=== PATIENT | female | born 1985 | race Caucasian/White ===

== ENCOUNTER 2017-03-06 08:19 | Emergency (ER) | payer BC ==
[~2017-03-06] VITALS: Ht 167.6 cm; Wt 73.3 kg
[~2017-03-06 08:19] MED LIST: DIVA125T2 PO; FERR325T18 PO; HYDR-3240 PO; HYDR-882 PO; TETR500C3; [UNRECOGNIZED DRUG - CODE] PO
[2017-03-06 08:28] VITALS: BP 144/91
[2017-03-06] MEDS ORDERED: CLINDAMYCIN PMX 900MG/50ML 50 ML IV ONE (09:30)
[2017-03-06] MEDS ORDERED: SODIUM CHLORIDE 0.9% 1,000ML IVBOLUS ONE (09:30)
[2017-03-06 09:58] LABS: BASOPHILS # (AUTO) 0.04 x10^3/uL (0-0.1); BASOPHILS % (AUTO) 0 % (0-1); EOSINOPHILS # (AUTO) 0.15 x10^3/uL (0-0.4); EOSINOPHILS % (AUTO) 1 % (1-7); LYMPHOCYTES # (AUTO) 1.86 x10^3/uL (1-3.4); LYMPHOCYTES % (AUTO) 17 % (22-44); MD NO; MEAN CORPUSCULAR HEMOGLOBIN 30.6 pg (27.0-34.8); MEAN CORPUSCULAR HGB CONC 33.3 g/dL (32.4-35.8); MEAN CORPUSCULAR VOLUME 91.7 fL (80-100); MEAN PLATELET VOLUME 8.5 fL (7.4-10.4); MONOCYTES # (AUTO) 0.75 x10^3/uL (0.2-0.8); MONOCYTES % (AUTO) 7 % (2-9); NEUTROPHILS # (AUTO) 7.98 x10^3/uL (1.8-6.8); NEUTROPHILS % (AUTO) 74 % (42-75); PLATELET COUNT 213 x10^3/uL (130-400); RED BLOOD COUNT 4.75 x10^6/uL (3.82-5.3); RED CELL DISTRIBUTION WIDTH 13.1 % (9.6-15.2)
[2017-03-06] MEDS ORDERED: CLINDAMYCIN PMX 900MG/50ML 50 ML ONE (10:04)
[2017-03-06 10:08] LABS: ALANINE AMINOTRANSFERASE 21 U/L (12-78); ALBUMIN 3.6 g/dL (3.4-5.0); ANION GAP 6 mmol/L (5-15); CALCIUM 8.6 mg/dL (8.5-10.1); CHLORIDE 107 mmol/L (98-107); CREATININE 0.62 mg/dL (0.55-1.02)
[2017-03-06 10:10] LABS: ALKALINE PHOSPHATASE 76 U/L (45-117); BILIRUBIN,TOTAL 0.5 mg/dL (0.2-1.0); TOTAL PROTEIN 7.3 g/dL (6.4-8.2)
[2017-03-06] MEDS ORDERED: MORPHINE SULFATE 4 MG/ML, 1ML ONE (10:50)
[2017-03-06] MEDS ORDERED: morphine SULFATE 10 MG/ML, 1ML IVPush ONE (11:00)
== END 2017-03-06 12:15 | disposition home or self-care (01) ==
LOC: ED 10:01
DX: K02.9 Dental caries, unspecified (principal); L03.211 Cellulitis of face; F17.200 Nicotine dependence, unspecified, uncomplicated; Z90.49 Acquired absence of other specified parts of digestive tract
CPT/HCPCS: 36415; 70491; 80053; 83605; 85025; 87040; 96365; 96375; 99285; J2270; J7030

== ENCOUNTER 2017-11-08 16:23 | Emergency (ER) | payer BC, MEDICAID ==
[~2017-11-08] VITALS: Ht 167.6 cm; Wt 75.0 kg
[~2017-11-08 16:23] MED LIST changes: +HYDR-3653 PO; -HYDR-882 PO; +TETR-17; -TETR500C3
[2017-11-08] MEDS ORDERED: DIAZEPAM 5 MG TABLET ONE (16:57)
[2017-11-08] MEDS ORDERED: DIAZEPAM 5 MG TABLET PO ONE (17:00)
[2017-11-08 17:16] VITALS: BP 134/68
== END 2017-11-08 17:18 | disposition home or self-care (01) ==
LOC: ED 17:00
DX: F11.10 Opioid abuse, uncomplicated (principal); F41.9 Anxiety disorder, unspecified; L03.113 Cellulitis of right upper limb; L03.114 Cellulitis of left upper limb; G43.909 Migraine, unspecified, not intractable, without status migrainosus; Z90.49 Acquired absence of other specified parts of digestive tract; Z88.1 Allergy status to other antibiotic agents
CPT/HCPCS: 99283

== ENCOUNTER 2017-12-24 20:33 | Inpatient (IN) | payer MEDICAID, OTHER ==
[~2017-12-24] VITALS: Ht 172.7 cm; Wt 72.7 kg
[2017-12-24 20:57] LABS: BASOPHILS # (AUTO) 0.08 x10^3/uL (0-0.1); BASOPHILS % (AUTO) 1 % (0-1); EOSINOPHILS # (AUTO) 0.25 x10^3/uL (0-0.4); EOSINOPHILS % (AUTO) 2 % (1-7); LYMPHOCYTES # (AUTO) 3.22 x10^3/uL (1-3.4); LYMPHOCYTES % (AUTO) 23 % (22-44); MD NO; MEAN CORPUSCULAR HEMOGLOBIN 27.3 pg (27.0-34.8); MEAN CORPUSCULAR HGB CONC 32.7 g/dL (32.4-35.8); MEAN CORPUSCULAR VOLUME 83.5 fL (80-100); MONOCYTES # (AUTO) 0.83 x10^3/uL (0.2-0.8); MONOCYTES % (AUTO) 6 % (2-9); NEUTROPHILS # (AUTO) 9.49 x10^3/uL (1.8-6.8); NEUTROPHILS % (AUTO) 68 % (42-75); PLATELET COUNT 241 x10^3/uL (130-400); RED BLOOD COUNT 4.61 x10^6/uL (3.82-5.3); RED CELL DISTRIBUTION WIDTH 14.7 % (9.6-15.2)
[2017-12-24] MEDS ORDERED: NALOXONE 1 MG/ML, 2ML IVPush ONE ×3 (21:00→22:30)
[2017-12-24] MEDS ORDERED: SODIUM CHLORIDE 0.9% 1,000ML IVBOLUS ONE (21:00)
[2017-12-24 21:03] LABS: ALANINE AMINOTRANSFERASE 21 U/L (12-78); ALBUMIN 3.2 g/dL (3.4-5.0); ANION GAP 10 mmol/L (5-15); CALCIUM 8.3 mg/dL (8.5-10.1); CHLORIDE 107 mmol/L (98-107); CREATININE 0.84 mg/dL (0.55-1.02); SALICYLATE LEVEL 2.7 mg/dL (2.8-20.0)
[2017-12-24 21:05] LABS: ALKALINE PHOSPHATASE 107 U/L (45-117); BILIRUBIN,TOTAL 0.3 mg/dL (0.2-1.0); TOTAL PROTEIN 7.1 g/dL (6.4-8.2)
[2017-12-24 21:10] LABS: ACETAMINOPHEN < 2 mcg/mL (10-30)
[2017-12-24] MEDS ORDERED: NALOXONE 1 MG/ML, 2ML ONE (21:30)
[2017-12-24] MEDS ORDERED: CLINDAMYCIN PMX 600MG/50ML 50 ML ONE (21:51)
[2017-12-24] MEDS ORDERED: CLINDAMYCIN PMX 600MG/50ML 50 ML IV ONE (22:00)
[2017-12-24] MEDS ORDERED: SODIUM CHLORIDE 0.9% 1,000 ML IV ONE (22:18)
[2017-12-24] MEDS ORDERED: ONDANSETRON 2MG/ML, 2ML IVPush PRN ×2 (22:30→23:00)
[2017-12-24] MEDS: NALOXONE 10 MG in SODIUM CHLORIDE 0.9% 1,000 ML IV SCH (22:37)
[2017-12-24] MEDS ORDERED: PHARMACOKINETIC CONSULTATION MC ONE (23:00)
[2017-12-24] MEDS ORDERED: PHARMACOKINETIC MONITORING MC PRN (23:00)
[2017-12-24] MEDS ORDERED: DOCUSATE 100 MG CAPSULE PO PRN (23:00)
[2017-12-24] MEDS ORDERED: BISACODYL 10 MG SUPP PR PRN (23:00)
[2017-12-24] MEDS ORDERED: LABETALOL 5MG/ML, 20ML IVPush PRN (23:00)
[2017-12-24] MEDS ORDERED: ACETAMINOPHEN 325 MG TABLET PO PRN (23:00)
[2017-12-24] MEDS ORDERED: morphine SULFATE 10 MG/ML, 1ML IVPush PRN (23:00)
[2017-12-24] MEDS ORDERED: OXYcodone IR 5MG TABLET PO PRN (23:00)
[2017-12-24] MEDS ORDERED: hydrALAzine 20 MG/ML, 1ML IVPush PRN (23:00)
[2017-12-24] MEDS ORDERED: POLYETHYLENE GLYCOL 17 GM PACKET PO PRN (23:00)
[2017-12-24] MEDS ORDERED: ONDANSETRON ODT 4 MG PO PRN (23:00)
[2017-12-24] MEDS ORDERED: PROMETHAZINE 25 MG/ML, 1ML IM PRN (23:00)
[2017-12-24] MEDS ORDERED: VANCOMYCIN PMX 1GM/200ML 200 ML IV ONE (23:00)
[2017-12-24] MEDS ORDERED: VANCOMYCIN PER PHARMACY MC PRN (23:00)
[2017-12-24 23:12] LABS: FREE T4 (FREE THYROXINE) 1.23 ng/dL (0.76-1.46); THYROID STIMULATING HORMONE 1.02 mIU/L (0.358-3.740)
[2017-12-24 23:30] LABS: HCT (SEDRATE) 30.6 % (34.6-47.8)
[2017-12-25] VITALS: BP 132/89
[2017-12-25] MEDS: SODIUM CHLORIDE 0.9% 1,000 ML IV SCH ×2 (00:08→05:16)
[2017-12-25] MEDS: VANCOMYCIN 1,400 MG in SODIUM CHLORIDE 0.9% 250 ML IV SCH ×2 (00:09→12:00)
[2017-12-25] MEDS: AMPICILLIN/SULBACTAM 3 GM in SODIUM CHLORIDE 0.9% 100 ML IV SCH ×2 (01:56→09:18)
[2017-12-25] MEDS: HEPARIN 5,000 UNITS/ML, 1ML SQ SCH ×2 (01:56→09:18)
[2017-12-25 04:31] LABS: HCG UR SG 1.016 (1.003-1.030); MICROSCOPIC NOT IND
[2017-12-25 04:41] LABS: AMPHETAMINE SCREEN, URINE Positive (Negative); BARBITURATE SCREEN, URINE Negative (Negative); BENZODIAZEPINE SCREEN, URINE Positive (Negative); CANNABINOID SCREEN, URINE Negative (Negative); COCAINE SCREEN, URINE Negative (Negative); METHADONE SCREEN, URINE Negative (Negative); OPIATE SCREEN, URINE Positive (Negative)
[2017-12-25 04:41] LABS: BASOPHILS # (AUTO) 0.05 x10^3/uL (0-0.1); BASOPHILS % (AUTO) 0 % (0-1); EOSINOPHILS # (AUTO) 0.11 x10^3/uL (0-0.4); EOSINOPHILS % (AUTO) 1 % (1-7); LYMPHOCYTES # (AUTO) 2.04 x10^3/uL (1-3.4); LYMPHOCYTES % (AUTO) 16 % (22-44); MD NO; MEAN CORPUSCULAR HEMOGLOBIN 27.8 pg (27.0-34.8); MEAN CORPUSCULAR HGB CONC 33.2 g/dL (32.4-35.8); MEAN CORPUSCULAR VOLUME 83.7 fL (80-100); MEAN PLATELET VOLUME 8.7 fL (7.4-10.4); MONOCYTES # (AUTO) 0.63 x10^3/uL (0.2-0.8); MONOCYTES % (AUTO) 5 % (2-9); NEUTROPHILS # (AUTO) 9.96 x10^3/uL (1.8-6.8); NEUTROPHILS % (AUTO) 78 % (42-75); PLATELET COUNT 203 x10^3/uL (130-400); RED BLOOD COUNT 4.07 x10^6/uL (3.82-5.3); RED CELL DISTRIBUTION WIDTH 14.4 % (9.6-15.2)
[2017-12-25 04:44] LABS: CULTURE INDICATED? NO
[2017-12-25 04:53] LABS: ALANINE AMINOTRANSFERASE 17 U/L (12-78); ALBUMIN 2.5 g/dL (3.4-5.0); ANION GAP 5 mmol/L (5-15); CALCIUM 7.5 mg/dL (8.5-10.1); CHLORIDE 115 mmol/L (98-107); CREATININE 0.42 mg/dL (0.55-1.02)
[2017-12-25 04:56] LABS: ALKALINE PHOSPHATASE 77 U/L (45-117); BILIRUBIN,TOTAL 0.5 mg/dL (0.2-1.0); CHOL/HDL RATIO 3.5; CHOLESTEROL, TOTAL 90 mg/dL (140-239); HDL CHOL % 29 % (28-40); HDL CHOLESTEROL (DIRECT) 26 mg/dL (40-60); LDL CHOLESTEROL,CALCULATED 43 mg/dL (54-169); LDL/HDL RATIO 1.7 (0.5-3.0); TOTAL PROTEIN 5.5 g/dL (6.4-8.2); TRIGLYCERIDES 107 mg/dL (50-200); VLDL CHOLESTEROL 21 mg/dL (0-25)
[2017-12-25] MEDS: NALOXONE 10 MG in SODIUM CHLORIDE 0.9% 1,000 ML IV SCH (08:26)
[2017-12-25] MEDS ORDERED: PIPERACILLIN/TAZO/PMX 3.375GM 50 ML IV SCH (10:30)
[2017-12-25] MEDS ORDERED: VANCOMYCIN 1,400 MG in SODIUM CHLORIDE 0.9% 250 ML IV SCH (12:00)
[2017-12-25] MEDS ORDERED: SODIUM CHLORIDE 0.9% 1,000 ML IV SCH (22:36)
== END 2017-12-25 14:40 | disposition left against medical advice (07) | DRG 871 ==
LOC: MERGE 20:33 → EDBD 20:33 → ED 21:38 → EDIP 22:18 → CCU 23:16
PROVIDERS: ADMIT Internal Medicine; ATTEND Internal Medicine
DX: A41.9 Sepsis, unspecified organism (principal); G92 Toxic encephalopathy; J96.01 Acute respiratory failure with hypoxia; K50.90 Crohn's disease, unspecified, without complications; L02.413 Cutaneous abscess of right upper limb; L03.113 Cellulitis of right upper limb; L03.116 Cellulitis of left lower limb; L02.414 Cutaneous abscess of left upper limb; L03.114 Cellulitis of left upper limb; L02.415 Cutaneous abscess of right lower limb; G43.909 Migraine, unspecified, not intractable, without status migrainosus; F11.10 Opioid abuse, uncomplicated; T40.1X1A Poisoning by heroin, accidental (unintentional), initial encounter; Z90.710 Acquired absence of both cervix and uterus; Y92.89 Other specified places as the place of occurrence of the external cause; Z88.2 Allergy status to sulfonamides; Z90.49 Acquired absence of other specified parts of digestive tract
CPT/HCPCS: 36415; 71045; 80053; 80061; 80074; 80307; 80329; 81003; 81025; 82962; 83735; 84439; 84443; 85025; 85651; 86140; 87040; 87081; 87806; 93005; 96361; 96365; 96375; 99291; G0378; J0295; J1644; J2543; J3370; G0475; G0480; J2310; J7030; J7050

== ENCOUNTER 2018-05-15 23:28 | Emergency (ER) | payer MEDICAID ==
[~2018-05-15] VITALS: Ht 167.6 cm; Wt 79.2 kg
[2018-05-16] MEDS ORDERED: KETAMINE 100 MG/ML, 5ML IM ONE
[2018-05-16] MEDS ORDERED: LIDOCAINE 1%-EPI 1:100K, 20ML SQ ONE
[2018-05-16] MEDS ORDERED: CLINDAMYCIN 150 MG/ML, 6ML IM ONE
[2018-05-16] MEDS ORDERED: LIDOCAINE 1%-EPI 1:100K, 20ML ONE (00:01)
[2018-05-16] MEDS ORDERED: DIPH,PERTUSS(ACELL),TET VAC/PF 0.5 ML IM-VACC ONE ×2 (00:04)
[2018-05-16] MEDS ORDERED: CLINDAMYCIN 150 MG/ML, 6ML ONE (00:04)
--- NOTE | 2018-05-16 00:09 | NUR ---
REVIEWED PROCEDURAL CONSENT FORM WITH PT AND ANSWERED ALL QUESTIONS. PT SIGNED CONSENT FORM. CONSENT FORM PLACED ON CHART. PT GETTING IN GOWN
[2018-05-16] MEDS ORDERED: PROPOFOL 10 MG/ML, 20ML IVPush ONE (01:00)
[2018-05-16] MEDS ORDERED: PROPOFOL 10 MG/ML, 20ML ONE (01:09)
[2018-05-16 02:23] VITALS: BP 141/80
== END 2018-05-16 02:24 | disposition home or self-care (01) ==
LOC: ED 05-16 02:03
DX: L02.413 Cutaneous abscess of right upper limb (principal)
CPT/HCPCS: 10060; 87070; 87205; 96372; 99285; S0077

== ENCOUNTER 2018-05-18 23:59 | Emergency (ER) | payer MEDICAID ==
[~2018-05-18] VITALS: Ht 167.6 cm; Wt 77.0 kg
[2018-05-19 00:04] VITALS: BP 147/119
[2018-05-19] MEDS ORDERED: LIDOCAINE 1%-EPI 1:100K, 20ML ONE (00:29)
[2018-05-19] MEDS ORDERED: LIDOCAINE 1%-EPI 1:100K, 20ML SQ ONE (00:30)
--- NOTE | 2018-05-19 00:47 | NUR ---
PA AT BEDSIDE FOR I&D.
== END 2018-05-19 01:20 | disposition home or self-care (01) ==
LOC: ED 05-19 00:13
DX: L02.413 Cutaneous abscess of right upper limb (principal); F11.10 Opioid abuse, uncomplicated; Z72.9 Problem related to lifestyle, unspecified; F17.210 Nicotine dependence, cigarettes, uncomplicated; G43.909 Migraine, unspecified, not intractable, without status migrainosus
CPT/HCPCS: 10060; 99283

== ENCOUNTER 2018-07-13 07:43 | Emergency (ER) | payer MEDICAID ==
[~2018-07-13] VITALS: Ht 167.6 cm; Wt 70.0 kg
--- NOTE | 2018-07-13 08:29 | NUR ---
33 y/o FEMALE PRESENTS TO ED WITH C/O LEFT HAND EDEMA. PER PT "I DON'T KNOW WHAT HAPPENED. IT'S BEEN THIS WAY FOR A FEW DAYS. I DID HIT IT ON A TABLE A FEW DAYS AGO TOO." OBVIOUS EDEMA. FRIEND BEDSIDE. NO ACUTE DISTRESS NOTED.
[2018-07-13] MEDS ORDERED: CEPHALEXIN 500 MG CAPSULE PO ONE (09:30)
[2018-07-13] MEDS ORDERED: LIDOCAINE-MPF 1%, 5ML INFIL ONE (09:30)
[2018-07-13] MEDS ORDERED: CLINDAMYCIN 300 MG CAPSULE PO ONE (09:30)
[2018-07-13] MEDS ORDERED: LIDOCAINE-MPF 1%, 5ML ONE ×2 (09:43→10:23)
[2018-07-13] MEDS ORDERED: CEPHALEXIN 500 MG CAPSULE ONE ×2 (09:43)
[2018-07-13] MEDS ORDERED: CLINDAMYCIN 300 MG CAPSULE ONE (09:44)
--- NOTE | 2018-07-13 10:25 | NUR ---
BEDSIDE REPORT TO DANIEL ROMERO
[2018-07-13 11:25] VITALS: BP 145/95
--- NOTE | 2018-07-13 11:27 | NUR ---
NO WOUND CULTURE NEEDD PER DR. DIEGO.
== END 2018-07-13 11:27 | disposition home or self-care (01) ==
LOC: ED 08:25
DX: L02.512 Cutaneous abscess of left hand (principal); L03.114 Cellulitis of left upper limb; Z90.710 Acquired absence of both cervix and uterus
CPT/HCPCS: 10060

== ENCOUNTER 2018-08-13 03:06 | Emergency (ER) | payer MEDICAID ==
[~2018-08-13] VITALS: Ht 167.6 cm; Wt 63.0 kg
[2018-08-13 03:12] VITALS: BP 149/112
--- NOTE | 2018-08-13 03:16 | NUR ---
bib remsa, pt has an abscess on the left wrist x 5 days ago. has been on abx for 3 days and abscess has gotten worse, despite abx. pt cannot remember what the abx are called.
== END 2018-08-13 05:14 | disposition home or self-care (01) ==
LOC: ED 03:42
DX: L02.414 Cutaneous abscess of left upper limb (principal); G43.909 Migraine, unspecified, not intractable, without status migrainosus; Z90.49 Acquired absence of other specified parts of digestive tract; Z90.710 Acquired absence of both cervix and uterus
CPT/HCPCS: 99283

== ENCOUNTER 2018-08-27 03:40 | Emergency (ER) | payer MEDICAID ==
[~2018-08-27] VITALS: Ht 167.6 cm; Wt 71.6 kg
--- NOTE | 2018-08-27 03:55 | NUR ---
LAB IN DRAWING BLOOD. URINE CUP GIVEN TO PT FOR SAMPLE COLLECTION
[2018-08-27 04:12] LABS: MEAN CORPUSCULAR HEMOGLOBIN 27.7 pg (27.0-34.8); MEAN CORPUSCULAR HGB CONC 32.2 g/dL (32.4-35.8); MEAN CORPUSCULAR VOLUME 86.2 fL (80-100); MEAN PLATELET VOLUME 9.1 fL (7.4-10.4); PLATELET COUNT 248 x10^3/uL (130-400); RED BLOOD COUNT 4.91 x10^6/uL (3.82-5.3); RED CELL DISTRIBUTION WIDTH 14.8 % (9.6-15.2)
[2018-08-27 04:18] LABS: MICROSCOPIC NOT IND
[2018-08-27 04:24] LABS: CULTURE INDICATED? NO
[2018-08-27 04:25] LABS: ALANINE AMINOTRANSFERASE 257 U/L (12-78); ALBUMIN 3.7 g/dL (3.4-5.0); ANION GAP 9 mmol/L (5-15); CHLORIDE 105 mmol/L (98-107); CREATININE 0.79 mg/dL (0.55-1.02)
[2018-08-27 04:30] LABS: ALKALINE PHOSPHATASE 159 U/L (45-117); BILIRUBIN,TOTAL 0.5 mg/dL (0.2-1.0); TOTAL PROTEIN 7.8 g/dL (6.4-8.2)
[2018-08-27 04:45] LABS: MD YES
[2018-08-27 04:47] LABS: BASOS#(MANUAL) 0.21 x10^3/uL (0-0.1); BASOS% (MANUAL) 2 % (0-1); EOS#(MANUAL) 0.21 x10^3/uL (0.0-0.4); EOS% (MANUAL) 2 % (1-7); LYMPH#(MANUAL) 4.22 x10^3/uL (1-3.4); LYMPHS% (MANUAL) 41 % (22-44); MONOS% (MANUAL) 1 % (2-9); REACTIVE LYMPHS # (MANUAL) 1.34 x10^3/uL (0-0); REACTIVE LYMPHS % (MANUAL) 13 % (0-0); SEG#(MANUAL) 4.22 x10^3/uL (1.8-6.8); SEGS% (MANUAL) 41 % (42-75)
[2018-08-27 04:48] LABS: <PLATELET ESTIMATE> ADEQUATE; <PLT MORPHOLOGY> NORMAL PLT MORPH; <RBC MORPHOLOGY> NORMAL
[2018-08-27] MEDS ORDERED: DICYCLOMINE 10 MG/ML, 2ML IM ONE (05:00)
[2018-08-27] MEDS ORDERED: DICYCLOMINE 10 MG/ML, 2ML ONE (05:01)
[2018-08-27 05:09] VITALS: BP 123/88
== END 2018-08-27 05:13 | disposition home or self-care (01) ==
LOC: ED 05:00
DX: K59.00 Constipation, unspecified (principal); R94.5 Abnormal results of liver function studies
CPT/HCPCS: 36415; 74022; 80053; 81003; 83690; 84703; 85025; 96372; 99284; J0500

== ENCOUNTER 2019-06-13 19:47 | Emergency (ER) | payer MEDICAID ==
[~2019-06-13] VITALS: Ht 170.2 cm; Wt 76.3 kg
[2019-06-13] MEDS ORDERED: SUBUTEX PO (20:28)
--- NOTE | 2019-06-13 20:30 | NUR ---
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 +N/V, NO DIARRHEA. LAST BM 4 DAYS AGO. SPO2 AND BP MONITORING IN PLACE, CALL LIGHT IN REACH. DENIES NEEDS AT THIS TIME
--- NOTE | 2019-06-13 21:12 | NUR ---
DANIEL ROMERO TO PLACE PIV VIA ULTRASOUND
[2019-06-13 21:21] LABS: ALANINE AMINOTRANSFERASE 21 U/L (12-78); ALBUMIN 4.2 g/dL (3.4-5.0); ANION GAP 6 mmol/L (5-15); CALCIUM 9.5 mg/dL (8.5-10.1); CHLORIDE 106 mmol/L (98-107); CREATININE 0.86 mg/dL (0.55-1.02)
[2019-06-13 21:23] LABS: ALKALINE PHOSPHATASE 114 U/L (45-117); BILIRUBIN,TOTAL 0.5 mg/dL (0.2-1.0); TOTAL PROTEIN 8.5 g/dL (6.4-8.2)
[2019-06-13 21:24] LABS: BASOPHILS # (AUTO) 0.04 x10^3/uL (0-0.1); BASOPHILS % (AUTO) 0 % (0-1); EOSINOPHILS # (AUTO) 0.13 x10^3/uL (0-0.4); EOSINOPHILS % (AUTO) 1 % (1-7); LYMPHOCYTES % (AUTO) 13 % (22-44); MD NO; MEAN CORPUSCULAR HEMOGLOBIN 29.2 pg (27.0-34.8); MEAN CORPUSCULAR HGB CONC 33.1 g/dL (32.4-35.8); MEAN CORPUSCULAR VOLUME 88.2 fL (80-100); MEAN PLATELET VOLUME 8.8 fL (7.4-10.4); MONOCYTES # (AUTO) 0.63 x10^3/uL (0.2-0.8); MONOCYTES % (AUTO) 5 % (2-9); NEUTROPHILS # (AUTO) 10.83 x10^3/uL (1.8-6.8); NEUTROPHILS % (AUTO) 81 % (42-75); PLATELET COUNT 259 x10^3/uL (130-400); RED BLOOD COUNT 5.39 x10^6/uL (3.82-5.3); RED CELL DISTRIBUTION WIDTH 12.6 % (9.6-15.2)
--- NOTE | 2019-06-13 21:27 | NUR ---
CT PENDING LAB/CREATINE.
[2019-06-13 21:28] VITALS: BP 138/104
[2019-06-13] MEDS ORDERED: OMNIPAQUE 350 MG/ML, 100ML BOTTLE ONE (21:46)
--- NOTE | 2019-06-13 21:52 | NUR ---
Attempted to obtain ua sample. Pt states unable to at this time. Requesting juice, awaiting all results for md galan of po intake.
--- NOTE | 2019-06-13 22:30 | NUR ---
NINFA HARTLEY CRANBERRY JUICE. PROVIDED JUICE PER PATIENT REQUEST. EDUCATED PATIENT ON NEED FOR UA, PATIENT CONFIRMS UNDERSTANDING
--- NOTE | 2019-06-13 22:58 | NUR ---
PATIENT AMBULATORY TO RESTROOM WITH STEADY GAIT
--- NOTE | 2019-06-13 23:08 | NUR ---
UA COLLECTED AND SENT PER PATIENT REQUEST. PIV REMOVED, PATIENT TOLERATED WELL. PATIENT GIVEN DICHARGE INSTRUCTIONS AND VERBALIZES UNDERSTANDING
--- NOTE | 2019-06-13 23:10 | NUR ---
PATIENT AMBULATORY WITH STEADY GAIT TO DISCHARGE
[2019-06-13 23:19] LABS: MICROSCOPIC NOT IND
[2019-06-13 23:25] LABS: CULTURE INDICATED? NO
== END 2019-06-13 23:14 | disposition home or self-care (01) ==
LOC: ED 22:55
DX: K59.00 Constipation, unspecified (principal); R10.32 Left lower quadrant pain; R11.2 Nausea with vomiting, unspecified; G43.909 Migraine, unspecified, not intractable, without status migrainosus
CPT/HCPCS: 36415; 74177; 80053; 81003; 83690; 85025; 99285; Q9967

== ENCOUNTER 2019-09-23 09:27 | Emergency (ER) | payer MEDICAID ==
[~2019-09-23] VITALS: Ht 170.2 cm; Wt 76.1 kg
[~2019-09-23 09:27] MED LIST changes: +SUBUTEX PO
--- NOTE | 2019-09-23 10:23 | NUR ---
pt presents to ED with c/o vaginal bleeding and pain onset this am , currently scant. pt is a&o, resps even and unlabored. pt has had pelvic exam by [facility], clean catch urine collected and walked to lab by this RN. pt awaiting UA results and dispo.
[2019-09-23 10:27] VITALS: BP 128/64
[2019-09-23 10:33] LABS: MICROSCOPIC INDICATED
--- NOTE | 2019-09-23 11:05 | NUR ---
ASSUMED CARE FOR DISCHARGE ONLY Patient/Caregiver given discharge instructions and they have confirmed that they understand the instructions. Patient ambulatory with steady gait.
== END 2019-09-23 11:07 | disposition home or self-care (01) ==
LOC: ED 10:05
DX: N30.01 Acute cystitis with hematuria (principal); R42 Dizziness and giddiness
CPT/HCPCS: 81001; 87077; 87086; 87186; 99283

== ENCOUNTER 2019-10-10 15:27 | Emergency (ER) | payer MEDICAID ==
[~2019-10-10] VITALS: Ht 170.2 cm; Wt 74.5 kg
--- NOTE | 2019-10-10 17:43 | NUR ---
ct results reveiwed. md at bedside. awaiting maxofacial consult. pt advised of results. pt is to be npo
[2019-10-10 19:09] VITALS: BP 118/67
== END 2019-10-10 20:59 | disposition home or self-care (01) ==
LOC: ED 17:18
DX: S02.40CA Maxillary fracture, right side, initial encounter for closed fracture (principal); S02.31XA Fracture of orbital floor, right side, initial encounter for closed fracture; W19.XXXA Unspecified fall, initial encounter; Y93.89 Activity, other specified; Y92.098 Other place in other non-institutional residence as the place of occurrence of the external cause; Y99.8 Other external cause status
CPT/HCPCS: 70486; 99284